=== PATIENT | male | born 1990 | race Caucasian/White ===

== ENCOUNTER → 2018-01-31 | Outpatient (CLI) | payer BC ==
[~2018-01-31] MED LIST: DIA5 PO; MIRT-1 PO
--- NOTE | 2018-01-31 13:51 | RADIOLOGY IMAGING REPORT ---
FACILITY: [facility] PATIENT NAME: Sigifredo Hardy : 1990 MR: [id number] V: [id number] EXAM DATE: ORDERING PHYSICIAN: SUSAN HECK TECHNOLOGIST: Location: [facility] Patient: Sigifredo Hardy : 1990 Visit/Account:[id number] Date of Sevice: 01/31/2018 CT Head without contrast Indication: Head injury Comparison: None available Technique: Axial CT images were obtained through the brain from the skull base to the vertex without administration of IV contrast. Reformatted coronal and sagittal images were also obtained. One of the following dose optimization techniques was utilized in the performance of this exam: autom ated exposure control; adjustment of the mA and/or kV according to the patient's size; or use of an i terative reconstruction technique. Specific details can be referenced in the facility's radiology CT exam operational policy. Findings: No evidence of mass, mass effect, or midline shift. No acute intracranial hemorrhage or acute territorial infarction. Mucous retention cyst seen within the inferior right maxillary sinus. Otherwise the paranasal sinuses appear patent. IMPRESSION: 1. No acute intracranial abnormality. Report Dictated By: Dk Lauren MD at 01/31/2018 1:45 PM Report E-Signed By: Dk Lauren MD at 01/31/2018 1:46 PM WSN:[id number]
== END ==
LOC: CT 12:01
PROVIDERS: ATTEND Family Medicine
DX: J34.1 Cyst and mucocele of nose and nasal sinus (principal)
CPT/HCPCS: 70450